=== PATIENT | female | born 1950 | race Caucasian/White ===

== ENCOUNTER → 2016-09-23 | Outpatient (CLI) | payer OTHER, BC ==
[~2016-09-23] VITALS: Ht 165.1 cm; Wt 67.1 kg
[~2016-09-23] MED LIST: AMBIEN 5 MG TABL5 M1 PO; ATIVAN1 MG PO; B12INJ IM; CLOBETASOL PROP50 M1 TOP; CYMBALTA30 MG PO; CYMBALTA60 MG PO; FOLIC ACID20 MG PO; GABAPENTIN 100100 MG PO; LEVOTHYROXINE0.05 MG PO; LOCOID TP; NEURONTIN 300300 M1 PO; NEURONTIN600 MG PO; VITAMIN B-12500 MCG PO
--- NOTE | ~2016-09-23 | HPC ---
[facility] [address] [address] PAIN MANAGEMENT CONSULTATION Name: KARL RODAS Room #: REG [facility] Jeremy.#: [id number] Admission: 09/23/16 Attend Phys: Jhon Knight DO Discharge: Date of : 46 Report #: [id number] THIS REPORT FOR: //name// CC: [facility] physician/PCP Darek Knight Referring Physician DATE OF SERVICE: 09/23/2016 CHIEF COMPLAINT: Low back and upper buttock pain, left-sided. HISTORY OF PRESENT ILLNESS: As you know, the patient is a 66-year-old female who reports constant low back pain, left upper buttock pain, which she believes began somewhere around 4 months ago. She denies injury or trauma that may have led to symptoms. She states her pain is constant, burning, aching, and gnawing, places current pain score 7/10, daily average is 7/10, worst pain has been is 9/10. The patient states that shifting her weight laterally, straining up exacerbates symptoms, improves with lying down. She has been evaluated by [facility] in her home state of [place] from a physical therapy standpoint. She shows some mild arthritic changes throughout the lumbar spine except for the advanced degenerative changes noted at the left L4-L5 level. Otherwise, age-related findings throughout the lumbar region. She continues to experience pain to the point where she ultimately sought evaluation. She was referred to our clinic for evaluation for suspected SI joint dysfunction and facet arthropathy of the lower lumbar spine leading to chronic pain. PAST MEDICAL HISTORY: 1. Depression. 2. Anxiety disorder. 3. Osteoarthritis. 4. Dyslipidemia. 5. Anxiety disorder. 6. Chronic insomnia. PAST SURGICAL HISTORY: 1. Right thumb surgery in 2010. 2. Facelift in 1997. 3. Hysterectomy in 1977. 4. in 1974. 5. Sinus surgery in 1978. 6. Ovarian cyst removal and epigastric artery repair in 1991. SOCIAL HISTORY: The patient denies tobacco, alcohol, IV or illicit drug use. She is a self-employed solar energy consultant and designer. She is working, not receiving workmen's compensation. She is not accompanied at today's visit. [place] [address] PAIN MANAGEMENT CONSULTATION Name: CLARKKARL J Room #: REG [facility] Luis Fernando#: [id number] Admission: 09/23/16 Attend Phys: John Knight DO Discharge: Date of : 46 Report #: [id number] litigation in regards to pain. REVIEW OF SYSTEMS: Positive for night sweats, fatigue, weakness, eye disease, wearing corrective eyewear, cataracts, painful bowel movements, constipation, frequent urination, nocturia, incontinence and dribbling to urine, rash and itching, changes in skin color, texture, lightheadedness and dizziness, numbness and tingling sensations, head injury, anxiety disorder, depression, insomnia, thyroid disease, heat and cold intolerance, bleeding and bruising tendencies. All other review of systems negative per 12-point review of systems other than those listed in history of present illness. PAIN IMPACT SCORE: 51/70 indicating severe interference with daily activities secondary to pain. ALLERGIES: DOXEPIN, DIPHENHYDRAMINE, TROSPIUM, and BELSOMRA. CURRENT MEDICATIONS: Cyanocobalamin 500 mcg once a day, gabapentin 300 mg p.o. at bedtime, zolpidem 5 mg p.o. at bedtime, clobetasol applied topically once a day, folic acid 20 mg once a day, lorazepam 1 mg twice a day, levothyroxine 50 mcg per day, and duloxetine 90 mg per day. IMAGING: MRI of the lumbar spine obtained on 07/10/2016, shows multilevel lumbar degenerative changes without significant spinal canal stenosis or high-grade neural foraminal stenosis. Disk degeneration is greatest at the L4-L5 level with facet arthropathy noted, left greater than right. PHYSICAL EXAMINATION: VITAL SIGNS: Blood pressure 112/66, pulse 70, respiratory rate 14 and unlabored, the patient is 100% on room air, height 5 feet 5 inches tall, weight 148 pounds, and BMI calculated 24.6. GENERAL: Well-developed, well-nourished, well-hydrated 66-year-old female, appearing her stated age, placing current pain score 7/10. HEENT: Normocephalic, atraumatic. Pupils are equal, round, and reactive to light. Extraocular muscles are intact. Sclerae are nonicteric without injection. NEUROLOGIC: Cranial nerves 2-12 are grossly intact. Speech is fluent. The patient deemed a good historian. LUNGS: Clear. No wheezing, rhonchi or rales. CARDIOVASCULAR: Regular. No appreciable gallop or rub. ABDOMEN: Soft, nontender, nondistended, normoactive bowel sounds. EXTREMITIES: Show no clubbing, no cyanosis, and no edema. MUSCULOSKELETAL: There is palpatory tenderness over the sacroiliac joint on the left when compared to the right. Deep palpation in the area causes intensification of pain. I am also able to elicit some lumbar facet pain generated with lumbar rotation and extension on the left when compared to the right. Ankle clonus negative. Babinski is negative. Seated straight leg [address] [address] PAIN MANAGEMENT CONSULTATION Name: KARL RODAS Room #: REG [facility]#: [id number] Admission: 09/23/16 Attend Phys: John Knight DO Discharge: Date of : 46 Report #: [id number] raising negative. Supine straight leg raising negative. Muscle bulk and tone equal and symmetrical in lower extremities. ASSESSMENT: 1. Left sacroiliac joint dysfunction. 2. Facet arthropathy of lower lumbar spine without radiculopathy. 3. Chronic intractable pain. PLAN: 1. The patient has been referred to our service by her primary care physician for evaluation for left low back pain and buttock pain. It appears the patient is suffering from 2 different pain generators, the greatest of the 2 is the SI joint on the left, second contributing to ongoing pain is the facet arthropathy noted at the L4-L5 level. We have discussed with the patient the treatment options for SI joint dysfunction and facet arthropathy, the following was discussed. The patient and I discussed physical therapy, stretching exercises, and core strengthening as a way to improve the axial back pain due to facet arthropathy. This will provide some improvement in SI joint, but is typically not used specifically for SI joint dysfunction. We discussed osteopathic or chiropractic manipulation of the SI joint as a conservative treatment option. We discussed medication management with nonsteroidal anti-inflammatories to help both with the low back pain and SI joint dysfunction. We discussed intra-articular facet injections, medial branch nerve blocks, and radiofrequency lesioning to address the lumbar facet issues and we discussed intraarticular SI joint injections and fusion as treatment for the SI joint. Given the fact the patient is suffering the majority of symptoms from the SI joint, today she has requested an intra-articular SI joint injection. The patient was advised risks and benefits of SI joint injections. These risks include, but are not necessarily limited to bleeding, bruising, infection, worsening of pain, no relief of pain, and also risk of temporary or permanent muscle weakness, temporary or permanent nerve damage, possible joint destruction and . The patient states understood and wished to proceed. 2. No medication changes were made at today's visit, the patient to continue current medical therapy as previously prescribed. 3. We will see the patient back in followup visit in about 2 weeks. At that time, we will review the efficacy of today's SI joint injection and determine if further treatment will be necessary or possible treatment to the facet joints of the lower lumbar spine. 4. We wish to thank the referring team for the opportunity to see this patient in consultation. We will keep you apprised of her response to treatment as we address her symptomology. Again, we wish to thank you for the opportunity to participate in her care. [address] [address] PAIN MANAGEMENT CONSULTATION Name: KARL RODAS Room #: REG Sandra Gould#: [id number] Admission: 09/23/16 Attend Phys: John Knight DO Discharge: Date of : 46 Report #: [id number] PROCEDURE NOTE DESCRIPTION OF PROCEDURE: Left sacroiliac joint injection under fluoroscopic guidance. This is the first procedure of the first series that the patient is undergoing. After obtaining written consent, the patient was taken back to the fluoroscopy suite and placed in a prone position with a pillow under the pelvis to decrease the lumbar lordosis. The skin of the gluteal-sacral area overlying the left sacroiliac joint was prepped and draped in an aseptic fashion. A medial to lateral oblique projection allowed separation of the anterior and posterior branches of the joint space. The skin and subcutaneous tissue overlying the target site of injection was anesthetized using 3 mL of 1% lidocaine. A 22-gauge 3-1/2-inch needle with a bent tip was directed into the inferior aspect of the sacroiliac joint using a posterior approach. A giving way at the needle hub was noted once the dorsal sacroiliac and interosseous ligaments were engaged. After negative aspiration for heme, a total of 1 mL of Omnipaque was injected, outlining the coin-shaped inferior recess of the joint. Provocation responses consisting of intense buttock pain were negative. After negative aspiration for heme, 3 mL of a solution containing 1 mL 40 mg per mL, 40 mg total triamcinolone, 2 mL of bupivacaine 0.5% was slowly injected. The needle was then retracted approximately residential and the needle track was flushed with 1 mL of 0.5% bupivacaine. Needle was then removed. A sterile bandage was placed over the injection site. There were no new sensory deficits present in the lower extremities. The heart rate, pulse oximetry and blood pressure were continuously monitored after the procedure. There were no apparent complications. The patient tolerated the procedure well and was carefully escorted to the recovery room in stable condition. The VAS was 7/10 before the procedure and 2/10 ten minutes after the procedure. After meeting discharge criteria, the patient was discharged home. <ELECTRONICALLY SIGNED> By: John Knight DO 10/01/16 [id number] John Knight DO /nt
[2016-09-23 10:51] VITALS: BP 112/66
== END ==
LOC: PAIN 08:18
DX: M53.3 Sacrococcygeal disorders, not elsewhere classified (principal); F41.9 Anxiety disorder, unspecified; F32.9 Major depressive disorder, single episode, unspecified; M19.90 Unspecified osteoarthritis, unspecified site; E78.5 Hyperlipidemia, unspecified; Z90.710 Acquired absence of both cervix and uterus; M48.06 Spinal stenosis, lumbar region

== ENCOUNTER → 2016-10-07 | Outpatient (CLI) | payer OTHER, BC ==
[~2016-10-07] VITALS: Ht 165.1 cm; Wt 69.8 kg
[~2016-10-07] MED LIST changes: +APAP500 PO; +CELEBREX 200 M200 MG PO; +GABAPENTIN800 M1 PO
--- NOTE | ~2016-10-07 | HPC ---
[facility] [address] [place] [address] PAIN MANAGEMENT CONSULTATION Name: KARL RODAS [id number] Admission: 10/07/16 Attend Phys: John Knight DO Discharge: Date of : 46 Report #: [id number] THIS REPORT FOR: //name// CC: [facility] physician/PCP Darek Knight DATE OF SERVICE: 10/07/2016 REFERRING PHYSICIAN: Darek Sethi M.D. CHIEF COMPLAINT: Low back pain, upper buttock pain and left-sided back pain. HISTORY OF PRESENT ILLNESS: As you know, the patient is a 66-year-old female who reports continued low back pain, left upper buttock pain, which began 5 months ago. She denies injury or trauma that may have led to symptoms. She states pain is constant in nature. She places pain score around 5/10. She states sensations of burning, aching and gnawing exacerbated with standing, shifting her weight and standing straight up and improves with lying down and medications. She returns today in followup visit to discuss options for treatment. At our last visit on 09/23/2016, we discussed multiple options for therapy. She did undergo a left sacroiliac joint injection with some improvement in her symptoms. She returns to discuss the possible repeat or discussion of other options for treatment. ALLERGIES: DOXEPIN, DIPHENHYDRAMINE, TROSPIUM and BELSOMRA. CURRENT MEDICATIONS: Cyanocobalamin, gabapentin, zolpidem, folic acid, lorazepam, levothyroxine and duloxetine. SOCIAL HISTORY: The patient denies tobacco, alcohol or IV or illicit drug use. She is a self-employed architectural designer. She is working, not receiving workmen's compensation, unaccompanied today. IMAGING DATA: No new imaging available. PHYSICAL EXAMINATION: VITAL SIGNS: Blood pressure 115/72, pulse 70 and respiratory rate 14 and unlabored. The patient is 100% on room air, height 5 feet 5 inches tall, weight 153.8 pounds and BMI calculated 25.6. GENERAL: Well developed, well nourished, well hydrated 66-year-old female. She appears stated age. Pain is rated around 5/10. HEENT: Normocephalic and atraumatic. Pupils equal, round and reactive to light. Extraocular muscles are intact. EXTREMITIES: Show no clubbing, no cyanosis and no edema. MUSCULOSKELETAL: Lower extremity strength appears equal and symmetrical 5/5, [facility] [address] [place] [address] PAIN MANAGEMENT CONSULTATION Name: KARL RODAS Room #: REG [facility]#: [id number] Admission: 10/07/16 Attend Phys: John Knight DO Discharge: Date of : 46 Report #: [id number] intact to light touch from L1 through S2 dermatomes. Deep tendon reflexes are symmetrical. There is palpatory tenderness over the paraspinal musculature of lower lumbar spine, left greater than right. This appears to be directly over the facet joints at L4-L5 and L5-S1 and continued SI joint dysfunction. ASSESSMENT: 1. Lumbosacral spondylosis without radicular symptoms. 2. Facet arthropathy of the lumbar spine. 3. Left sacroiliac joint dysfunction. 4. Chronic intractable pain. PLAN: 1. The patient returns today in followup visit with significant improvement in her SI joint pain. She continues to experience some palpatory tenderness, but this has improved significantly. She continues also to experience axial back pain, left greater than right, appears to be related to the facet joints of the lower lumbar region. Provocation testing did exacerbate the symptoms over this area. There is no radiation and distribution concerning of lumbar radicular symptoms. We discussed with the patient treatment options that remain for her therapy. These would include physical therapy, stretching exercises with nonsteroidal anti-inflammatory use. We discussed intra-articular facet injections, medial branch nerve blocks, radiofrequency lesioning and also surgical options. After reviewing risks and benefits of all proposed treatment options, the patient chose to begin with conservative medical therapy and physical therapy. 2. The patient was started on Celebrex 200 mg dose 1 tab p.o. b.i.d. I have given #60 tablets. She is to take this with meals. We have chosen Celebrex, specifically as the patient has had side effects to Aleve, Advil, nabumetone and ketoprofen causing difficulty with bleeding gums incontinent and upset stomach. We will trial the patient on Celebrex. The medication indicated for those individuals with GI upset secondary to nonsteroidal anti-inflammatory use. We will start the patient on the medication today. Review efficacy at followup visit. 3. The patient will be sent for physical therapy twice a week for 6 weeks. I have given the patient a prescription to begin the physical therapy as quickly as possible, core strengthening and mobility should improve the patient's function. 4. We will see the patient back in followup visit on an as needed basis. By: [id number] John Knight DO /nt
[2016-10-07 09:18] VITALS: BP 115/72
== END ==
LOC: PAIN 06:50
DX: M47.26 Other spondylosis with radiculopathy, lumbar region (principal); G89.29 Other chronic pain; M53.3 Sacrococcygeal disorders, not elsewhere classified; Z79.899 Other long term (current) drug therapy